=== PATIENT | female | born 1995 | race Two or more races ===

== ENCOUNTER 2021-07-28 15:15 | Outpatient (REF) | payer OTHER, SELFPAY | END 2021-07-28 15:16 | disposition home or self-care (01) | LOC: HO.LAB 15:15 | PROVIDERS: Visit Provider Internal Medicine | DX: Z20.822 Contact with and (suspected) exposure to COVID-19 (principal) | CPT/HCPCS: C9803; U0003; U0005 ==

== ENCOUNTER 2021-08-15 13:11 | Outpatient (REF) | payer OTHER, SELFPAY | END 2021-08-15 13:12 | disposition home or self-care (01) | LOC: HO.LAB 13:11 | PROVIDERS: Visit Provider Internal Medicine | DX: Z20.822 Contact with and (suspected) exposure to COVID-19 (principal) | CPT/HCPCS: C9803; U0003; U0005 ==

== ENCOUNTER 2021-10-23 10:22 | Outpatient (REF) | payer MEDICAID, SELFPAY ==
[2021-10-23 16:12] LABS: CT PCR DETECTED (Not Detect.); NG PCR NOT DETECTED (Not Detect.)
[2021-10-28 21:47] LABS: HPV mRNA E6/E7 rflx Not Detected (Not Detected)
== END 2021-10-23 10:23 | disposition home or self-care (01) ==
LOC: HO.LAB 10:22
PROVIDERS: Advanced Practice Midwife; Visit Provider Advanced Practice Midwife
DX: Z01.419 Encounter for gynecological examination (general) (routine) without abnormal findings (principal); Z11.3 Encounter for screening for infections with a predominantly sexual mode of transmission; Z11.51 Encounter for screening for human papillomavirus (HPV)
CPT/HCPCS: 87491; 87591; 87624; 88142

== ENCOUNTER → 2021-10-29 08:37 | Outpatient (BNVA) | payer MEDICAID, SELFPAY | PROVIDERS: Visit Provider Advanced Practice Midwife | DX: Z30.42 Encounter for surveillance of injectable contraceptive (principal) | CPT/HCPCS: 96372; 99211 ==

== ENCOUNTER 2022-04-07 12:09 | Outpatient (REF) | payer MEDICAID, SELFPAY ==
[2022-04-07 16:52] LABS: CT PCR NOT DETECTED (Not Detect.); NG PCR NOT DETECTED (Not Detect.)
[2022-04-08 11:04] LABS: BV Int Neg Control Negative (Negative); BV Int Pos Control Positive (Positive)
== END 2022-04-07 12:10 | disposition home or self-care (01) ==
LOC: HO.LAB 12:09
PROVIDERS: Visit Provider Advanced Practice Midwife
DX: Z01.419 Encounter for gynecological examination (general) (routine) without abnormal findings (principal); N93.9 Abnormal uterine and vaginal bleeding, unspecified; Z20.2 Contact with and (suspected) exposure to infections with a predominantly sexual mode of transmission
CPT/HCPCS: 87480; 87491; 87510; 87591; 87660; 99212

== ENCOUNTER 2022-06-19 13:57 | Outpatient (REF) | payer MEDICAID, SELFPAY ==
--- NOTE | ~2022-06-19 | US_ITS ---
EXAMINATION: US PELVIS CLINICAL INFORMATION: Abnormal uterine and vaginal bleeding COMPARISON: None TECHNIQUE: Ultrasound of the pelvis is performed using both transabdominal and transvaginal transducers along with Doppler. Transvaginal imaging is performed due to inadequate visualization transabdominally. FINDINGS: Uterus: The uterus is anteverted and anteflexed and measures 7.1 cm in length, 4.0 mL in AP and 5.1 cm in transverse dimension. The double wall endometrial thickness is 0.6 x 0.7 cm. The uterus is smooth in contour and has normal myometrial echogenicity. No visible fibroid. Adnexa: Both ovaries are visualized. There is normal color flow to the adnexa. There is no ovarian torsion. There is no pelvic ascites or fluid collection. Right ovary measures 3.6 x 3.1 x 4.3 cm and volume 24.1 mL. There is anechoic cyst measuring 3.3 x 2.6 x 3.1 cm and multiple small daughter cyst Left ovary measures 2.4 x 2.0 x 2.0 cm and volume 5.0 mL. There is no free fluid in the cul-de-sac. US/US pelvic and transvaginal IMPRESSION: Unremarkable uterus. Right ovarian cyst with multiple daughter cysts
== END 2022-06-19 13:58 | disposition home or self-care (01) ==
LOC: HO.US 13:57
PROVIDERS: Visit Provider Advanced Practice Midwife
DX: N93.9 Abnormal uterine and vaginal bleeding, unspecified (principal)
CPT/HCPCS: 76830; 76856

== ENCOUNTER 2022-10-13 18:16 | Day surgery (SDC) | payer MEDICAID, SELFPAY ==
--- NOTE | ~2022-10-13 | US_ITS ---
EXAMINATION: US OBSTETRICAL ULTRASOUND CLINICAL INFORMATION: Abdominal pain with positive test COMPARISON: None. LMP: 09/02/2022. Gestational age by maternal dates is 5 weeks 6 days. Estimated date of delivery by maternal dates is 06/09/2023. TECHNIQUE: Both transabdominal and endovaginal scanning was performed. FINDINGS: No gestational sac is seen within the uterus. Of note, in the right adnexa, there is a 1.9 x 1.6 x 2.0 cm adnexal mass that contains a fluid center, a yolk sac and a pole with a heart rate of 106 bpm consistent with an ectopic . Based upon the crown-rump length of 0.25 cm, gestational age would be 5 weeks 6 days with an JESSICA of 06/09/2023. MATERNAL ADNEXA: Aside from the above-mentioned ectopic , the right ovary measures 3.2 x 2.1 x 2.6 cm and appears unremarkable and the left ovary measures 2.8 x 1.6 x 1.6 cm and appears unremarkable. There is a small amount of free pelvic fluid. US/US OB pelvic and transvaginal IMPRESSION: There is a live ectopic seen in the right adnexa with heart rate of 106 bpm and a gestational age of 5 weeks 6 days. This critical result was delivered directly to Bianca Bolton NP immediately after the exam and it was ascertained that the content and urgency of the report was understood at the time of direct communication.
--- NOTE | 2022-10-13 18:30 | ED_ITS ---
HPI - Female Genitourinary General Chief complaint: Abdominal Pain <Bianca Bolton CNP - Last Filed: 10/13/22 20:40> Stated complaint: Sharp pain in cervix <Bianca Bolton CNP - Last Filed: 10/13/22 20:40> Time Seen by Provider: 10/13/22 20:40 <Bianca Bolton CNP - Last Filed: 10/13/22 20:40> Source: patient <Huber Castillo MD - Last Filed: 10/13/22 21:33> Mode of arrival: ambulatory <Huber Castillo MD - Last Filed: 10/13/22 21:33> Limitations: no limitations <Huber Castillo MD - Last Filed: 10/13/22 21:33> History of Present Illness HPI Narrative: 27-year-old female 2 therapeutic abortions LMP 09/02/2022, 5 weeks 6 days by dates, patient was unaware that she was at the time of presentation. She states that she was on Depo-Provera and her periods were irregular. The patient presented to the emergency department for evaluation of abdominal pain. She states the pain came on suddenly last night. She points to her suprapubic area when asked to localize the pain. She states the pain is been a sharp, constant pain which is 8/10 at its worst. Patient states the pain did radiate to her back. She denied nausea, vomiting, fever. She states she did have some chills. She denied frequency, urgency, dysuria. She denied vaginal discharge. The patient was seen by the provider in triage. Urine test was positive, quantitative beta-hCG was 9000. Ultrasound revealed a Right ectopic measuring 5 weeks and 6 days. Patient was then brought to the emergency department and evaluated by me. On my examination the patient has moderate suprapubic tenderness and moderate to severe left and right adnexal tenderness. Pelvic exam was deferred. Patient states that her last meal was breakfast at 10:00. <Huber Castillo MD - Last Filed: 10/13/22 21:33> Related Data Home medications: Home Medications Medication Instructions Recorded Confirmed No Known Home Meds 10/13/22 10/13/22 <Bianca Bolton CNP - Last Filed: 10/13/22 20:40> Allergies/Adverse reactions: Allergies Allergy/AdvReac Type Severity Reaction Status Date / Time No Known Allergies Allergy Verified 04/07/22 11:57 <Bianca Bolton CNP - Last Filed: 10/13/22 20:40> Review of Systems Review of Systems: Yes all other systems are reviewed and are negative <Huber Castillo MD - Last Filed: 10/13/22 21:33> [facility] Past Medical History [facility] Narrative: Past medical history: None. Past surgical history: Cervical polyp. Social history: She denies tobacco, alcohol and drug use. <Huber Castillo MD - Last Filed: 10/13/22 21:33> Medical History: Medical History Abnormal uterine bleeding (AUB) <Bianca Bolton CNP - Last Filed: 10/13/22 20:40> Surgical History: Surgical History H/O eye surgery Status post cervical polyp removal <Bianca Bolton CNP - Last Filed: 10/13/22 20:40> Social History Social History: Social History Alcohol intake: never Patient Tobacco Use Status: Current someday Tobacco user Tobacco use type: Cigarette Cigarettes Per Day: 2 Smoked in Last 30 Days: No Use of substances other than those prescribed or required for medical reasons: No Advance Directives: No Advance Directives Information Provided: No Current occupational status: employed Current occupation: [employer] <Bianca Bolton CNP - Last Filed: 10/13/22 20:40> Physical Exam Vital Signs: Vital Signs: Last Vital Signs Temp 98.5 F 10/13/22 20:58 Pulse 73 10/13/22 20:58 Resp 18 10/13/22 20:58 BP 98/63 10/13/22 20:58 Pulse Ox 98 10/13/22 20:58 O2 Del Method 10/13/22 20:58 BMI result Body Mass Index 21.2 <Bianca Bolton CNP - Last Filed: 10/13/22 20:40> Vital Signs: Last Vital Signs Temp 98.5 F 10/13/22 20:58 Pulse 73 10/13/22 20:58 Resp 18 10/13/22 20:58 BP 98/63 10/13/22 20:58 Pulse Ox 98 10/13/22 20:58 O2 Del Method 10/13/22 20:58 BMI result Body Mass Index 21.2 Vital signs were normal. <Huber Castillo MD - Last Filed: 10/13/22 21:33> General: Awake, alert, female patient, pleasant, cooperative, no distress. HEENT: Head normal cephalic atraumatic, pupils equal round reactive light, sclera contact however normal, mouth revealed moist membranes. Neck: Supple no adenopathy. Lungs: Clear to auscultation Abdomen: Nondistended, normoactive bowel sounds, moderate suprapubic/pelvic tenderness, moderate bilateral adnexal tenderness right greater than left. Back: No CVA tenderness Extremities: Normal Neurologic exam: Nonfocal <Huber Castillo MD - Last Filed: 10/13/22 21:33> Course Course Course Narrative: This is an RME: Additional HPI, ROS, PE not included below will be deferred to primary provider. Patient is a 27 year old female, presenting to the ED for evaluation of ABD pain. States pain to diffuse lower ABD/ diffuse lower back pain. States It's in my ovaries , feels like menstrual cramping but this is worse. Denies nausea, vomiting, vaginal bleeding, vaginal discharge, dysuria, urinary frequency, hematuria. Pain 7/10 States LMP 09/02/22, irregular menses since stopped depo-provera March 2022. Plan: labs, urinalysis, hcg 20:05 positive , patient made aware, will obtain pelvic US 20:30 advised by game technician, patient with positive ectopic , positive cardiac activity. Spoke with tank charger, patient to be brought back to room 13, advised ED attending Dr. Castillo of patient case <Bianca Bolton CNP - Last Filed: 10/13/22 20:40> Medical Decision Making Medical Decision Making MDM Narrative: 27-year-old female , 2 therapeutic abortions, 5 weeks 6 days based on LMP, who presented to emergency department for evaluation lower abdominal pain which began last night. Patient's exam did reveal suprapubic and bilateral adnexal tenderness. Patient's workup was started by the provider in triage. 2110: My independent interpretation of the patient's laboratory data is as follows: WBC normal 7200, anemia with an H&H of 11.8 and 34.4-no baseline value s. Chloride elevated 109, LFTs normal, quantitative beta-hCG elevated 9003. COVID-19 pending. Urinalysis leukocyte esterase 1+, microscopic revealed 0-2 RBCs, 11-20 WBCs, 3-5 epithelial cells, 4+ bacteria-patient is asymptomatic with no dysuria, this is most likely a non clean catch specimen. Radiology interpretation of the pelvic ultrasound is why right ectopic measuring 5 weeks 6 days. I did discuss this finding with the covering OBGYN surgeon, Dr. Trujillo and he is coming to the emergency department to evaluate the patient. A type and screen has been ordered. <Huber Castillo MD - Last Filed: 10/13/22 21:33> Differential Diagnosis Differential diagnosis includes but is not limited to appendicitis, ovarian cyst, ectopic , ovarian torsion <Huber Castillo MD - Last Filed: 10/13/22 21:33> Consult Healthcare Provider I discussed the patient's presentation with Dr. Trujillo, OBGYN on-call <Huber Castillo MD - Last Filed: 10/13/22 21:33> Lab Data [facility] Lab Attestation statement: I reviewed the patient's lab results. <Huber Castillo MD - Last Filed: 10/13/22 21:33> Please see [facility] for discussion <Huber Castillo MD - Last Filed: 10/13/22 21:33> Result Diagrams: 10/13/22 19:37 10/13/22 19:37 <Bianca Bolton CNP - Last Filed: 10/13/22 20:40> Labs: Lab Results 10/13/22 10/13/22 10/13/22 Range/Units 18:41 18:41 19:37 WBC 7.2 (4.8-10.8) X10*3/uL RBC 3.77 L (4.20-5.50) X10*6/uL Hgb 11.8 L (12.0-16.0) g/dl Hct 34.4 L (37.0-47.0) % MCV 91.2 (80.0-98.0) fL MCH 31.3 (27.0-33.0) pg MCHC 34.3 (31.0-35.0) g/dl RDW 12.7 (11.0-16.0) % Plt Count 165 (160-400) X10*3/uL MPV 9.8 (9.4-12.3) fL Immature Gran % (Auto) 0.1 (0.0-0.4) % Neut % (Auto) 59.9 (45-73) % Lymph % (Auto) 30.8 (20-40) % [place] % (Auto) 7.5 (2-11) % Eos % (Auto) 1.3 (0-4) % Baso % (Auto) 0.4 (0-2) % Lymph # (Auto) 2.2 (1.2-4.9) X10*3/uL [place] # (Auto) 0.5 (0.1-1.2) X10*3/uL Eos # (Auto) 0.1 (0.0-0.4) X10*3/uL Baso # (Auto) 0.0 (0.0-0.2) X10*3/uL Abs Immat Gran (auto) 0.01 (0.00-0.03) X10*3/uL Absolute Neuts (auto) 4.3 (2.0-8.3) x10*3/uL Absolute Nucleated RBC 0.000 (0.0-0.012) X10*3/uL Nucleated RBC % (auto) 0.0 (0.0-0.2) /100WBC Sodium (135-145) mmol/L Potassium (3.3-5.1) mmol/L Chloride (96-108) mmol/L Carbon Dioxide (22-29) mmol/L Anion Gap (12-20) BUN (9-16) mg/dL Creatinine (0.5-1.4) mg/dL Estim Creat Clear Calc Estimated GFR Random Glucose (60-115) mg/dL Calcium (8.4-10.2) mg/dL Total Bilirubin (0.0-1.0) mg/dL AST (5-31) U/L ALT (0-31) U/L Alkaline Phosphatase (39-117) U/L Total Protein (6.5-8.0) g/dL Albumin (3.5-5.0) g/dL Lipase (8-78) U/L Beta HCG, Quant mIU/mL Urine Color Yellow Urine Appearance Cloudy Urine pH 7.0 (5.0-9.0) Ur Specific [place] >= 1.030 H (1.005-1.025) Urine Protein Trace (Neg-Trace) mg/dL Urine Glucose (UA) Negative (Negative) mg/dL Urine Ketones Trace (Negative) mg/dL Urine Blood Negative (Negative) Urine Nitrite Negative (Negative) Ur Leukocyte Esterase Small (1+) H (Negative) Urine RBC 0-2 (0-2) /HPF Urine WBC 11-20 H (0-5) /HPF Ur Squamous Epith Cells 3-5 (0-2) /HPF Urine Bacteria 4+ (None Seen) Hyaline Casts 0-2 (0-2) /LPF Urine Test POSITIVE H (NEGATIVE) COVID-19 (UMAIR) (Negative) COVID-19 Clin Com 10/13/22 10/13/22 Range/Units 19:37 20:48 WBC (4.8-10.8) X10*3/uL RBC (4.20-5.50) X10*6/uL Hgb (12.0-16.0) g/dl Hct (37.0-47.0) % MCV (80.0-98.0) fL MCH (27.0-33.0) pg MCHC (31.0-35.0) g/dl RDW (11.0-16.0) % Plt Count (160-400) X10*3/uL MPV (9.4-12.3) fL Immature Gran % (Auto) (0.0-0.4) % Neut % (Auto) (45-73) % Lymph % (Auto) (20-40) % [place] % (Auto) (2-11) % Eos % (Auto) (0-4) % Baso % (Auto) (0-2) % Lymph # (Auto) (1.2-4.9) X10*3/uL [place] # (Auto) (0.1-1.2) X10*3/uL Eos # (Auto) (0.0-0.4) X10*3/uL Baso # (Auto) (0.0-0.2) X10*3/uL Abs Immat Gran (auto) (0.00-0.03) X10*3/uL Absolute Neuts (auto) (2.0-8.3) x10*3/uL Absolute Nucleated RBC (0.0-0.012) X10*3/uL Nucleated RBC % (auto) (0.0-0.2) /100WBC Sodium 142 (135-145) mmol/L Potassium 4.0 (3.3-5.1) mmol/L Chloride 109 H (96-108) mmol/L Carbon Dioxide 26 (22-29) mmol/L Anion Gap 11 L (12-20) BUN 8 L (9-16) mg/dL Creatinine 0.80 (0.5-1.4) mg/dL Estim Creat Clear Calc 85.8 Estimated GFR > 60 Random Glucose 90 (60-115) mg/dL Calcium 9.1 (8.4-10.2) mg/dL Total Bilirubin 0.3 (0.0-1.0) mg/dL AST 11 (5-31) U/L ALT 9 (0-31) U/L Alkaline Phosphatase 60 (39-117) U/L Total Protein 6.1 L (6.5-8.0) g/dL Albumin 3.9 (3.5-5.0) g/dL Lipase 13 (8-78) U/L Beta HCG, Quant 9003 mIU/mL Urine Color Urine Appearance Urine pH (5.0-9.0) Ur Specific [place] (1.005-1.025) Urine Protein (Neg-Trace) mg/dL Urine Glucose (UA) (Negative) mg/dL Urine Ketones (Negative) mg/dL Urine Blood (Negative) Urine Nitrite (Negative) Ur Leukocyte Esterase (Negative) Urine RBC (0-2) /HPF Urine WBC (0-5) /HPF Ur Squamous Epith Cells (0-2) /HPF Urine Bacteria (None Seen) Hyaline Casts (0-2) /LPF Urine Test (NEGATIVE) COVID-19 (UMAIR) Negative (Negative) COVID-19 Clin Com See Note <Bianca Strange Che, CUSTOMER RESOLUTION SPECIALIST - Last Filed: 10/13/22 20:40> Lab Results 10/13/22 10/13/22 10/13/22 Range/Units 18:41 18:41 19:37 WBC 7.2 (4.8-10.8) X10*3/uL RBC 3.77 L (4.20-5.50) X10*6/uL Hgb 11.8 L (12.0-16.0) g/dl Hct 34.4 L (37.0-47.0) % MCV 91.2 (80.0-98.0) fL MCH 31.3 (27.0-33.0) pg MCHC 34.3 (31.0-35.0) g/dl RDW 12.7 (11.0-16.0) % Plt Count 165 (160-400) X10*3/uL MPV 9.8 (9.4-12.3) fL Immature Gran % (Auto) 0.1 (0.0-0.4) % Neut % (Auto) 59.9 (45-73) % Lymph % (Auto) 30.8 (20-40) % [place] % (Auto) 7.5 (2-11) % Eos % (Auto) 1.3 (0-4) % Baso % (Auto) 0.4 (0-2) % Lymph # (Auto) 2.2 (1.2-4.9) X10*3/uL [place] # (Auto) 0.5 (0.1-1.2) X10*3/uL Eos # (Auto) 0.1 (0.0-0.4) X10*3/uL Baso # (Auto) 0.0 (0.0-0.2) X10*3/uL Abs Immat Gran (auto) 0.01 (0.00-0.03) X10*3/uL Absolute Neuts (auto) 4.3 (2.0-8.3) x10*3/uL Absolute Nucleated RBC 0.000 (0.0-0.012) X10*3/uL Nucleated RBC % (auto) 0.0 (0.0-0.2) /100WBC Sodium (135-145) mmol/L Potassium (3.3-5.1) mmol/L Chloride (96-108) mmol/L Carbon Dioxide (22-29) mmol/L Anion Gap (12-20) BUN (9-16) mg/dL Creatinine (0.5-1.4) mg/dL Estim Creat Clear Calc Estimated GFR Random Glucose (60-115) mg/dL Calcium (8.4-10.2) mg/dL Total Bilirubin (0.0-1.0) mg/dL AST (5-31) U/L ALT (0-31) U/L Alkaline Phosphatase (39-117) U/L Total Protein (6.5-8.0) g/dL Albumin (3.5-5.0) g/dL Lipase (8-78) U/L Beta HCG, Quant mIU/mL Urine Color Yellow Urine Appearance Cloudy Urine pH 7.0 (5.0-9.0) Ur Specific [place] >= 1.030 H (1.005-1.025) Urine Protein Trace (Neg-Trace) mg/dL Urine Glucose (UA) Negative (Negative) mg/dL Urine Ketones Trace (Negative) mg/dL Urine Blood Negative (Negative) Urine Nitrite Negative (Negative) Ur Leukocyte Esterase Small (1+) H (Negative) Urine RBC 0-2 (0-2) /HPF Urine WBC 11-20 H (0-5) /HPF Ur Squamous Epith Cells 3-5 (0-2) /HPF Urine Bacteria 4+ (None Seen) Hyaline Casts 0-2 (0-2) /LPF Urine Test POSITIVE H (NEGATIVE) COVID-19 (UMAIR) (Negative) COVID-19 Clin Com 10/13/22 10/13/22 Range/Units 19:37 20:48 WBC (4.8-10.8) X10*3/uL RBC (4.20-5.50) X10*6/uL Hgb (12.0-16.0) g/dl Hct (37.0-47.0) % MCV (80.0-98.0) fL MCH (27.0-33.0) pg MCHC (31.0-35.0) g/dl RDW (11.0-16.0) % Plt Count (160-400) X10*3/uL MPV (9.4-12.3) fL Immature Gran % (Auto) (0.0-0.4) % Neut % (Auto) (45-73) % Lymph % (Auto) (20-40) % [place] % (Auto) (2-11) % Eos % (Auto) (0-4) % Baso % (Auto) (0-2) % Lymph # (Auto) (1.2-4.9) X10*3/uL [place] # (Auto) (0.1-1.2) X10*3/uL Eos # (Auto) (0.0-0.4) X10*3/uL Baso # (Auto) (0.0-0.2) X10*3/uL Abs Immat Gran (auto) (0.00-0.03) X10*3/uL Absolute Neuts (auto) (2.0-8.3) x10*3/uL Absolute Nucleated RBC (0.0-0.012) X10*3/uL Nucleated RBC % (auto) (0.0-0.2) /100WBC Sodium 142 (135-145) mmol/L Potassium 4.0 (3.3-5.1) mmol/L Chloride 109 H (96-108) mmol/L Carbon Dioxide 26 (22-29) mmol/L Anion Gap 11 L (12-20) BUN 8 L (9-16) mg/dL Creatinine 0.80 (0.5-1.4) mg/dL Estim Creat Clear Calc 85.8 Estimated GFR > 60 Random Glucose 90 (60-115) mg/dL Calcium 9.1 (8.4-10.2) mg/dL Total Bilirubin 0.3 (0.0-1.0) mg/dL AST 11 (5-31) U/L ALT 9 (0-31) U/L Alkaline Phosphatase 60 (39-117) U/L Total Protein 6.1 L (6.5-8.0) g/dL Albumin 3.9 (3.5-5.0) g/dL Lipase 13 (8-78) U/L Beta HCG, Quant 9003 mIU/mL Urine Color Urine Appearance Urine pH (5.0-9.0) Ur Specific [place] (1.005-1.025) Urine Protein (Neg-Trace) mg/dL Urine Glucose (UA) (Negative) mg/dL Urine Ketones (Negative) mg/dL Urine Blood (Negative) Urine Nitrite (Negative) Ur Leukocyte Esterase (Negative) Urine RBC (0-2) /HPF Urine WBC (0-5) /HPF Ur Squamous Epith Cells (0-2) /HPF Urine Bacteria (None Seen) Hyaline Casts (0-2) /LPF Urine Test (NEGATIVE) COVID-19 (UMAIR) Negative (Negative) COVID-19 Clin Com See Note <Huber Castillo MD - Last Filed: 10/13/22 21:33> Radiology Impression Discussion of test interpretation with radiology: I have reviewed the radiologist's reading. <Huber Castillo MD - Last Filed: 10/13/22 21:33> Radiologist Impression: LMP: 09/02/2022. Gestational age by maternal dates is 5 weeks 6 days. Estimated date of delivery by maternal dates is 06/09/2023. TECHNIQUE: Both transabdominal and endovaginal scanning was performed. ? FINDINGS: No gestational sac is seen within the uterus. Of note, in the right adnexa, there is a 1.9 x 1.6 x 2.0 cm adnexal mass that contains a fluid center, a yolk sac and a pole with a heart rate of 106 bpm consistent with an ectopic . Based upon the crown-rump length of 0.25 cm, gestational age would be 5 weeks 6 days with an JESSICA of 06/09/2023. ?? MATERNAL ADNEXA: ? ? Aside from the above-mentioned ectopic , the right ovary measures 3.2 x 2.1 x 2.6 cm and appears unremarkable and the left ovary measures 2.8 x 1.6 x 1.6 cm and appears unremarkable. There is a small amount of free pelvic fluid. US/US OB pelvic and transvaginal IMPRESSION: There is a live ectopic seen in the right adnexa with heart rate of 106 bpm and a gestational age of 5 weeks 6 days. This critical result was delivered directly to Bianca Barcome PRODUCTION GEAR CUTTER immediately after the exam and it was ascertained that the content and urgency of the report was understood at the time of direct communication. ? Dictated By: Bonilla Wilson MD Signed By:<Electronically signed by Bonilla Wilson MD in OV>[id number]/13/[id number] <Huber Castillo MD - Last Filed: 10/13/22 21:33> Discharge Plan Discharge Prescriptions: No Action No Known Home Meds <Bianca Bolton CNP - Last Filed: 10/13/22 20:40>
[2022-10-13 18:32] VITALS: BP 128/78; PULSE 103; RESP 20; TEMP 36.6; O2SAT 98; BMI 21.2
[2022-10-13 18:56] LABS: Appearance Urine Cloudy; Color Urine Yellow; Glucose Urine UA Negative (Negative); Leukocyte Esterase Urine Small (1+) (Negative); Nitrite Urine Negative (Negative); Specific Gravity - Urine >= 1.030 (1.005-1.025); UMIC TRIGGER UACC YES; Urine Blood Negative (Negative); Urine Ketones Trace mg/dL (Negative); Urine Protein Trace mg/dL (Neg-Trace)
[2022-10-13 18:58] LABS: Bacteria Urine 4+ (None Seen); Hyaline Casts Urine 0-2 /LPF (0-2); RBC Urine 0-2 /HPF (0-2); UACC Culture Trigger YES; UPreg QC Valid YES; Urine Pregnancy POSITIVE (NEGATIVE)
[2022-10-13 19:41] LABS: MANUAL DIFF FLAG NO
[2022-10-13 19:43] LABS: Basophils Percent Auto 0.4 % (0-2); Eosinophils Absolute Auto 0.1 X10*3/uL (0.0-0.4); Eosinophils Percent Auto 1.3 % (0-4); Hematocrit 34.4 % (37.0-47.0); Hemoglobin 11.8 g/dl (12.0-16.0); Imm Gran Abs Auto 0.01 X10*3/uL (0.00-0.03); Imm Gran Pct Auto 0.1 % (0.0-0.4); Lymphocytes Absolute Auto 2.2 X10*3/uL (1.2-4.9); Lymphocytes Percent Auto 30.8 % (20-40); Mean Corpuscular HGB Conc 34.3 g/dl (31.0-35.0); Mean Corpuscular Hemoglobin 31.3 pg (27.0-33.0); Mean Corpuscular Volume 91.2 fL (80.0-98.0); Mean Platelet Volume 9.8 fL (9.4-12.3); Monocytes Absolute Auto 0.5 X10*3/uL (0.1-1.2); Monocytes Percent Auto 7.5 % (2-11); Neutrophils Absolute Auto 4.3 x10*3/uL (2.0-8.3); Neutrophils Percent Auto 59.9 % (45-73); Platelet Count 165 X10*3/uL (160-400); Red Blood Count 3.77 X10*6/uL (4.20-5.50); Red Cell Distribution Width 12.7 % (11.0-16.0); White Blood Count 7.2 X10*3/uL (4.8-10.8)
[2022-10-13 19:57] LABS: Alanine Aminotransferase 9 U/L (0-31); Albumin Level 3.9 g/dL (3.5-5.0); Alkaline Phosphatase 60 U/L (39-117); Anion Gap 11 (12-20); Aspartate Amino Transferase 11 U/L (5-31); Bilirubin Total 0.3 mg/dL (0.0-1.0); Blood Urea Nitrogen 8 mg/dL (9-16); Calcium 9.1 mg/dL (8.4-10.2); Carbon Dioxide 26 mmol/L (22-29); Chloride 109 mmol/L (96-108); Creatinine Clr Calc Pharmacy 85.8; Estimated Glomerular Filt Rate > 60; Glucose Random 90 mg/dL (60-115); Lipase 13 U/L (8-78); Sodium 142 mmol/L (135-145); Total Protein 6.1 g/dL (6.5-8.0)
--- NOTE | 2022-10-13 20:23 | PC.NURSE ---
Pt called in the WR @ this time with no response.
[2022-10-13 20:26] LABS: HCG Quantitative 9003 mIU/mL
[2022-10-13 20:58] VITALS: BP 98/63; PULSE 73; RESP 18; TEMP 36.9; O2SAT 98
[2022-10-13 21:25] LABS: COVID-19 Test Negative (Negative); IDNOW Serial# 6674DD1D
--- NOTE | 2022-10-13 21:34 | PM.GYNCN ---
MEDICAID BILLING SPECIALIST - CN: HPI Data of Consult Consult date: 10/13/22 Primary Care Provider: [facility] Consult Narrative Narrative: I was consulted on Leonila Gamboa who is a 27 year old female LMP 09/02/2022, 5 weeks 6 days by dates, presented to the emergency room complaining of right abdominal pain, the pain started yesterday evening and was sharp and resolved in the morning back this afternoon,?It is sharp in nature, constant 8/10 at its worst and radiates to her back no associated nausea, vomiting or fever, no urinary symptoms or vaginal discharge.? In the emergency room the following workup was done: H&H 11.8/34.4, hCG 9003, ultrasound was done and showed a right 2 cm live ectopic with a positive heart rate. Rh positive cc:: CC: OB [facility] Past Medical History Medical History Abnormal uterine bleeding (AUB) Surgical History Surgical History H/O eye surgery Status post cervical polyp removal Social History Social History Alcohol intake: never Patient Tobacco Use Status: Current someday Tobacco user Tobacco use type: Cigarette Cigarettes Per Day: 2 Smoked in Last 30 Days: No Use of substances other than those prescribed or required for medical reasons: No Advance Directives: No Advance Directives Information Provided: No Current occupational status: employed Current occupation: [employer] Allergies Allergy/AdvReac Type Severity Reaction Status Date / Time No Known Allergies Allergy Verified 04/07/22 11:57 Home Medications Medication Instructions Recorded Confirmed Last Taken Type No Known Home Meds 10/13/22 10/13/22 Unknown History MEDICAID BILLING SPECIALIST Physical Exam Vitals Vital signs: Temp Pulse Resp BP Pulse Ox O2 Del Method 98.5 F 73 18 98/63 98 10/13/22 20:58 10/13/22 20:58 10/13/22 20:58 10/13/22 20:58 10/13/22 20:58 10/13/22 20:58 BMI result Body Mass Index 21.2 Abdomen Auscultation/Inspection/Palpation: Soft and Tenderness (Right lower quadrant tenderness, no rebound or guarding) Female Genitalia (Pelvic) Exam: Deferred MEDICAID BILLING SPECIALIST - Results Labs 10/13/22 19:37 10/13/22 19:37 Labs: Short CBC 10/13/22 Range/Units 19:37 WBC 7.2 (4.8-10.8) X10*3/uL Hgb 11.8 L (12.0-16.0) g/dl Hct 34.4 L (37.0-47.0) % Plt Count 165 (160-400) X10*3/uL BMP 10/13/22 19:37 Sodium 142 Potassium 4.0 Chloride 109 H Carbon Dioxide 26 BUN 8 L Creatinine 0.80 Calcium 9.1 Liver Function 10/13/22 Range/Units 19:37 Total Bilirubin 0.3 (0.0-1.0) mg/dL AST 11 (5-31) U/L ALT 9 (0-31) U/L Alkaline Phosphatase 60 (39-117) U/L Albumin 3.9 (3.5-5.0) g/dL Urine 10/13/22 10/13/22 Range/Units 18:41 18:41 Urine Color Yellow Urine Appearance Cloudy Urine pH 7.0 (5.0-9.0) Ur Specific [place] >= 1.030 H (1.005-1.025) Urine Protein Trace (Neg-Trace) mg/dL Urine Glucose (UA) Negative (Negative) mg/dL Urine Test POSITIVE H (NEGATIVE) Assessment and Plan (1) Ectopic of right ovary: Status: Acute Plan Discussed with the patient her clinical scenario, ectopic was + heart rate and high HCG level at 9003, two relative contraindications for methotrexate. Discussed with the patient options of treatment including methotrexate , multidose regimen to improve the success rate , with two relative contraindications to methotrexate treatment, versus laparoscopic salpingostomy possible salpingectomy. Discussed the following with the patient, the advantage of methotrexate treatment would be to avoid surgical complications and its possible consequences, however the risks of methotrexate treatment were discussed with the patient includeingbut not limited to: a higher failure rate because of the 2 factors that are relative contraindications, possible tubal rupture with its possible consequences. In addition, discussed with the patient surgical management, laparoscopic salpingostomy possible salpingectomy possible laparotomy, the risks of which were discussed with the patient including but not limited to : bleeding, infection, possible injury to bladder, bowel, ureter, bladder, possible injury to vessels and need for blood transfusion with all its risks including HIV, hepatitis-B and C and other blood borne pathogens, possible negative impact on future fertility, possible incision infection or hernia, placenta thrombosis, possible scar tissue development and chronic pelvic pain, incomplete removal of ectopic , possible laparotomy, hysterectomy or . After further discussion the patient decided to proceed with surgical management normal laparoscopic salpingostomy/possibly salpingectomy possible laparotomy. All questions answered, the patient verbalized understanding agreed with the plan and signed the consent. Type and screen sent. Time Spent With Patient Time: Total time managing care of this patient today ____ minutes.
--- NOTE | 2022-10-13 22:27 | HO.ANESPROP2 ---
HPI - Anesthesia Eval Consult details Narrative: Ectopic PMFSH Active Problems Active Problems: All Active Problems (Updated 10/13/22 @ 21:32 by Huber Castillo MD) Ectopic of right ovary (Acute) Abnormal uterine bleeding (AUB) (Acute) Chlamydia contact, treated (Acute) Spotting (Acute) Encounter for management and injection of depo-Provera (Acute) Encounter for annual routine gynecological examination (Acute) Past Medical History Medical History Abnormal uterine bleeding (AUB) Family History Family history of problems with anesthesia: No Surgical History Surgical History H/O eye surgery Status post cervical polyp removal History of Problems with Anesthesia: No Social History Social History Alcohol intake: never Patient Tobacco Use Status: Current someday Tobacco user Tobacco use type: Cigarette Cigarettes Per Day: 2 Smoked in Last 30 Days: No Use of substances other than those prescribed or required for medical reasons: No Advance Directives: No Advance Directives Information Provided: No Current occupational status: employed Current occupation: [employer] Allergies Allergy/AdvReac Type Severity Reaction Status Date / Time No Known Allergies Allergy Verified 04/07/22 11:57 Home Medications Medication Instructions Recorded Confirmed Last Taken Type No Known Home Meds 10/13/22 10/13/22 Unknown History Exam Exam Date and Time: October 13, [id number] Height,Weight and Vital Signs: Height 5 ft 3 in Weight 54.431 kg Last Vital Signs Temp 98.5 F 10/13/22 20:58 Pulse 73 10/13/22 20:58 Resp 18 10/13/22 20:58 BP 98/63 10/13/22 20:58 Pulse Ox 98 10/13/22 20:58 O2 Del Method 10/13/22 20:58 Pertinent Lab Results Pertinent Lab Results: Laboratory Tests 10/13/22 10/13/22 10/13/22 18:41 18:41 19:37 WBC 7.2 RBC 3.77 L Hgb 11.8 L Hct 34.4 L MCV 91.2 MCH 31.3 MCHC 34.3 RDW 12.7 Plt Count 165 MPV 9.8 Immature Gran % (Auto) 0.1 Neut % (Auto) 59.9 Lymph % (Auto) 30.8 [place] % (Auto) 7.5 Eos % (Auto) 1.3 Baso % (Auto) 0.4 Lymph # (Auto) 2.2 [place] # (Auto) 0.5 Eos # (Auto) 0.1 Baso # (Auto) 0.0 Abs Immat Gran (auto) 0.01 Absolute Neuts (auto) 4.3 Absolute Nucleated RBC 0.000 Nucleated RBC % (auto) 0.0 Sodium Potassium Chloride Carbon Dioxide Anion Gap BUN Creatinine Estim Creat Clear Calc Estimated GFR Random Glucose Calcium Total Bilirubin AST ALT Alkaline Phosphatase Total Protein Albumin Lipase Beta HCG, Quant Urine Color Yellow Urine Appearance Cloudy Urine pH 7.0 Ur Specific Orient >= 1.030 H Urine Protein Trace Urine Glucose (UA) Negative Urine Ketones Trace Urine Blood Negative Urine Nitrite Negative Ur Leukocyte Esterase Small (1+) H Urine RBC 0-2 Urine WBC 11-20 H Ur Squamous Epith Cells 3-5 Urine Bacteria 4+ Hyaline Casts 0-2 Urine Test POSITIVE H COVID-19 (UMAIR) COVID-19 [employer] Com Blood Type Antibody Screen 10/13/22 10/13/22 10/13/22 19:37 20:48 21:02 WBC RBC Hgb Hct MCV MCH MCHC RDW Plt Count MPV Immature Gran % (Auto) Neut % (Auto) Lymph % (Auto) [place] % (Auto) Eos % (Auto) Baso % (Auto) Lymph # (Auto) [place] # (Auto) Eos # (Auto) Baso # (Auto) Abs Immat Gran (auto) Absolute Neuts (auto) Absolute Nucleated RBC Nucleated RBC % (auto) Sodium 142 Potassium 4.0 Chloride 109 H Carbon Dioxide 26 Anion Gap 11 L BUN 8 L Creatinine 0.80 Estim Creat Clear Calc 85.8 Estimated GFR > 60 Random Glucose 90 Calcium 9.1 Total Bilirubin 0.3 AST 11 ALT 9 Alkaline Phosphatase 60 Total Protein 6.1 L Albumin 3.9 Lipase 13 Beta HCG, Quant 9003 Urine Color Urine Appearance Urine pH Ur Specific Orient Urine Protein Urine Glucose (UA) Urine Ketones Urine Blood Urine Nitrite Ur Leukocyte Esterase Urine RBC Urine WBC Ur Squamous Epith Cells Urine Bacteria Hyaline Casts Urine Test COVID-19 (UMAIR) Negative COVID-19 [employer] Com See Note Blood Type B Positive Antibody Screen NEGATIVE Airway Mallampati Class: II TM Dist: >3cm Neck ROM: Full Loose/Missing/Broken Teeth: No Heart: RRR Lungs: CTA Assessment and Plan Assessment Anesthesia Assessment: Anesthesia Plan Discussed and Chart Reviewed Final Anesthetic Review Family History of Problems with Anesthesia: No History of Problems with Anesthesia: No NPO: Yes ASA Class: I and Emergency Final Preanesthetic Review: No Changes in Pt Med Stat, Meds/Allgs Chart Reviewed, Consent Obtained/Reviewed and Anes Risks/Benef Reviewed Patient Risk: Low Procedure Risk: Intermediate Anesthetic Plan Anesthetic Plan: GA Disposition: Standard PACU
[2022-10-14] VITALS (7 sets, daily range): BP systolic 112–127; BP diastolic 62–78; PULSE 82–99; RESP 16–20; TEMP 36.3–37; O2SAT 99–100
--- NOTE | 2022-10-14 00:13 | P.BOP_ITS ---
Brief Operative Note Date of Service: 10/14/22 Pre-op diagnosis: Right tubal Ectopic with positive heart rate and 9003 hCG Post-op diagnosis: same ( 100 cc of hemoperitoneum, damage distended distal fallopian tube) Procedure: Laparoscopic right partial salpingectomy Surgeon: Nikunj Trujillo MD Anesthesia: GETA Was an Official Greeter used for this Procedure?: No Estimated blood loss (mL): 0 Pathology: other (Right partial fallopian tube with ectopic prepped) Condition: stable Disposition: PACU
--- NOTE | 2022-10-14 00:15 | W.PM.OPN ---
Operative Note Operative Note Date of Service: 10/14/22 Narrative: PREOPERATIVE DIAGNOSIS:?R tubal ectopic POSTOPERATIVE DIAGNOSIS:?Right ecotpic filling up most of the distal fallopian tubewith distension and bluish discoloration, 1000 cc of hemoperitoneum Procedure: Right partial salpingectomy QBL: Minimal Anesthesia: GETA SURGEON:? Nikunj Trujillo MD?? Computer Graphic Artist:None Complications: None Pathology: Right partial Fallopian tubes in 2 specimens with ectopic ? DESCRIPTION OF PROCEDURE:?The patient was taken to the OR where general anesthesia was easily obtained. The patient was then prepped and draped in a sterile fashion and placed in dorsal lithotomy position. A speculum was introduced into the patient?s vagina for cervical visualization. The single tooth tenaculum used to grab the anterior lip of the cervix and Humi uterine manipulator was introduced inside the patient uterine cavity, the single-tooth tenaculum was then removed and hemostasis was assured?using pressure. a Brito catheter?was inserted and clear urine started draining. Gloves were changed to clean ones. Attention was then drawn to the abdomen where a 10 mm longitudinal incision was done intra umbilical and carried down all the way to the fascia, which was tented?up using 2 Nevin clamps and was nicked in the midline and then extended on both end of the incision?, them using 2 pick?ups the peritoneum?was entered with Metzenbaum scissors and under direct visualization, a 10 mm Jasso trocar was introduced into the patient?s abdomen. Once intraperitoneal placement was confirmed with direct visualization, pneumoperitoneum was started & was easily obtained.Then, two fingerbreadths above the pubic symphysis and towards the?right lower quadrant, under direct visualization, a 5 mm trocar was then introduced into the patient?s abdomen. and a 3rd one on the left?lower quadrant was placed?in a similar manner. The patient was placed in Trendelenburg position, Inspection revealed right tubal filling up most of the distal right tube , it looked damaged from the pressure of the distention and 100 cc of hemoperitoneum, normal bilateral ovaries and normal left fallopian tube. Attention was then drawn to the Right fallopian tube. Since most of the distal right tube was filled up with the ectopic and looked damage from the distention, decision was made to proceed with partial salpingectomy instead of salpingostomy. The IP ligament was identified and fallopian tube was then grasped by the fimbria and incised from the mesosalpinx using ligasure device, using cautery for hemostasis and cutting afterwards a bite at a time all the way to the area medial to the edge of the ectopic of the right fallopian tube , the portion of the distal fallopian tube was taken out in 2 steps with 2 separate specimen. Good hemostasis was noted from the right fallopian tube sites and the operative site. Specimen were then removed from the patient?s abdomen using endoloop from the 10 mm trocar through the umbilicus. Copious irrigation was done. Once good hemostasis was noted from the patient?s abdomen, pneumoperitoneum was deflated and all trocars were removed. Infraumbilical fascia was closed with 0 Vicryl and interrupted suture. The skin was closed with 4-0 Vicryl. The Right and left?lower quadrant ports were closed with 0 Vicryl. Bupivicaine 0.25 10 cc were injected subcuticularly in the 3 incisions. Then speculum was put back in the vagina inspection revealed?hemostasis at the site of the tenaculum, the?sponge stick was removed?from the patient's vagina and Brito was draining clear urine was taken out too. Sponge, lap and needle counts were correct x2. The patient was taken to the recovery room in stable condition.
[2022-10-14] MEDS: oxyCODONE HCl Immed Release 5 MG TABLET PO (01:02)
[2022-10-14] MEDS: Acetaminophen 1,000 MG/100 ML PIGGYBACK 400 MG IV (01:02)
--- NOTE | 2022-10-14 01:51 | PC.NURSE ---
Dr. Trujillo sent script to pharmacy electronically. Patient aware. Patient given 5 mg oxycodone and IV tylenol per Dr. Trujillo and Dr. Sylvester order. Dr. Sylvester also encouraged patient to take ibuprofen prophylactically
== END 2022-10-14 01:56 | disposition home or self-care (01) ==
LOC: HO.ED 10-14 00:40 → HO.SSS 10-14 00:47 → HO.ED 01-05 08:41
PROVIDERS: Nurse Practitioner Family; Emergency Provider Emergency Medicine Emergency Medical Services; Visit Provider Obstetrics & Gynecology
PROC: 10T24ZZ Resection of Products of Conception, Ectopic, Percutaneous Endoscopic Approach (ICD-10-PCS; CPT 59150; principal; 2022-10-13 22:30)
DX: O00.101 Right tubal pregnancy without intrauterine pregnancy (principal); O99.331 Smoking (tobacco) complicating pregnancy, first trimester; Z3A.01 Less than 8 weeks gestation of pregnancy; Z67.20 Type B blood, Rh positive; N93.8 Other specified abnormal uterine and vaginal bleeding; K66.1 Hemoperitoneum; F17.210 Nicotine dependence, cigarettes, uncomplicated; Z20.822 Contact with and (suspected) exposure to COVID-19; Z86.001 Personal history of in-situ neoplasm of cervix uteri; Z87.59 Personal history of other complications of pregnancy, childbirth and the puerperium
CPT/HCPCS: 59151; 36415; 76801; 76817; 80053; 81001; 81025; 83690; 84702; 85025; 86850; 86900; 86901; 87086; 87088; 87186; 87635; 88305; 99285; J0131; J1100; J2405; J2795; J3010

== ENCOUNTER 2022-10-22 11:44 | Outpatient (REF) | payer MEDICAID, SELFPAY ==
[2022-10-22 12:10] LABS: Hematocrit 37.6 % (37.0-47.0); Hemoglobin 12.7 g/dl (12.0-16.0); Mean Corpuscular HGB Conc 33.8 g/dl (31.0-35.0); Mean Corpuscular Hemoglobin 31.5 pg (27.0-33.0); Mean Corpuscular Volume 93.3 fL (80.0-98.0); Mean Platelet Volume 9.6 fL (9.4-12.3); Platelet Count 223 X10*3/uL (160-400); Red Blood Count 4.03 X10*6/uL (4.20-5.50); Red Cell Distribution Width 12.8 % (11.0-16.0); White Blood Count 7.6 X10*3/uL (4.8-10.8)
[2022-10-22 12:42] LABS: HCG Quantitative 216 mIU/mL
[2022-10-22 12:56] LABS: Thyroid Stimulating Hormone 0.26 uIU/mL (0.32-4.0)
[2022-10-23 08:53] LABS: HBc Num1 0.07 S/CO (0.00-0.79); HIV AB/AG Nonreactive (Nonreactive); HIV Num 1 0.06 S/CO (0.00-0.99); Hepatitis B Core Antibody Nonreactive (Nonreactive); ~HepC Num1 0.09 S/CO (0.00-0.79); ~Hepatitis C Antibody Nonreactive (Nonreactive)
[2022-10-23 08:58] LABS: Syphilis Screen Nonreactive (Nonreactive)
== END 2022-10-22 11:45 | disposition home or self-care (01) ==
LOC: HO.LAB 11:44
PROVIDERS: Advanced Practice Midwife; Visit Provider Obstetrics & Gynecology
DX: O00.201 Right ovarian pregnancy without intrauterine pregnancy (principal); Z11.4 Encounter for screening for human immunodeficiency virus [HIV]
CPT/HCPCS: 36415; 84443; 84702; 85027; 86704; 86780; 86803; 87389; 99212

== ENCOUNTER → 2023-01-29 10:48 | Outpatient (BNVA) | payer MEDICAID, SELFPAY | PROVIDERS: Visit Provider Obstetrics & Gynecology ==

== ENCOUNTER 2023-01-29 11:33 | Outpatient (REF) | payer MEDICAID, SELFPAY ==
--- NOTE | ~2023-01-29 | US_ITS ---
EXAMINATION: US OBSTETRICAL ULTRASOUND CLINICAL INFORMATION: Encounter for supervision abnormal COMPARISON: None available. LMP: 12/11/2022. Gestational age by maternal dates is 7 weeks 0 days. Estimated date of delivery by maternal dates is 09/17/2023. TECHNIQUE: Transabdominal first trimester OB ultrasound FINDINGS: There is a single intrauterine gestational sac with visible yolk sac, embryo/fetus, and cardiac activity. There is no significant subchorionic hemorrhage or hematoma. HR: 158 beats per minute. CRL (crown rump length): 1.24 cm (7 weeks 4 days +/- 4 days). JESSICA (estimated date of delivery): 09/13/2023 +/- 4 days. MATERNAL ADNEXA: The right maternal ovary measures 3 x 2.2 x 2.4 cm. The left maternal ovary measures 3.1 x 2.6 x 1.4 cm. There is no significant maternal adnexal mass. No maternal pelvic ascites. US/US OB pelvic and transvaginal IMPRESSION: 1. Single intrauterine gestation with ultrasound gestational age of 7 weeks 4 days +/- 4 days. 2. Estimated date of delivery is 09/13/2023 +/- 4 days. 3. No maternal adnexal mass or pelvic ascites.
[2023-01-29 13:15] LABS: HCG Quantitative > 225000 mIU/mL
== END 2023-01-29 11:34 | disposition home or self-care (01) ==
LOC: HO.US 11:33
PROVIDERS: Visit Provider Obstetrics & Gynecology
DX: Z34.91 Encounter for supervision of normal pregnancy, unspecified, first trimester (principal); Z3A.01 Less than 8 weeks gestation of pregnancy
CPT/HCPCS: 36415; 76801; 76817; 84702; 99212

== ENCOUNTER → 2023-02-15 09:52 | Outpatient (BNVA) | payer MEDICAID, SELFPAY | PROVIDERS: Visit Provider Obstetrics & Gynecology ==

== ENCOUNTER 2023-02-16 08:37 | Outpatient (REF) | payer MEDICAID, SELFPAY ==
[2023-02-16 16:11] LABS: CT PCR NOT DETECTED (Not Detect.); NG PCR NOT DETECTED (Not Detect.)
== END 2023-02-16 08:38 | disposition home or self-care (01) ==
LOC: HO.LNP 08:37
PROVIDERS: Visit Provider Advanced Practice Midwife
DX: O21.9 Vomiting of pregnancy, unspecified (principal); O99.341 Other mental disorders complicating pregnancy, first trimester; F41.9 Anxiety disorder, unspecified; F32.A Depression, unspecified; Z3A.09 9 weeks gestation of pregnancy
CPT/HCPCS: 0353U; 81003; 99212

== ENCOUNTER 2023-03-24 13:29 | Outpatient (REF) | payer MEDICAID, SELFPAY | END 2023-03-24 13:30 | disposition home or self-care (01) | LOC: HO.LNP 13:29 | PROVIDERS: Visit Provider Advanced Practice Midwife | DX: O26.892 Other specified pregnancy related conditions, second trimester (principal); N89.8 Other specified noninflammatory disorders of vagina; R10.2 Pelvic and perineal pain; R10.9 Unspecified abdominal pain; Z3A.14 14 weeks gestation of pregnancy | CPT/HCPCS: 87480; 87510; 87660; 99212 ==

== ENCOUNTER 2023-03-24 13:29 | Outpatient (AMB) | payer MEDICAID, SELFPAY ==
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
[2023-03-24 13:49] VITALS: BP 92/50; BMI 22.0
== END 2023-03-24 14:18 | disposition home or self-care (01) ==
LOC: HO.HWS 13:29
PROVIDERS: Visit Provider Advanced Practice Midwife
DX: Z34.82 Encounter for supervision of other normal pregnancy, second trimester (principal)
CPT/HCPCS: 25942

== ENCOUNTER 2023-03-24 14:23 | Outpatient (REF) | payer MEDICAID, SELFPAY ==
[2023-03-24 15:46] LABS: Hematocrit 33.5 % (37.0-47.0); Hemoglobin 11.4 g/dl (12.0-16.0); Mean Platelet Volume 9.7 fL (9.4-12.3); Platelet Count 208 X10*3/uL (160-400); Red Blood Count 3.68 X10*6/uL (4.20-5.50); White Blood Count 6.7 X10*3/uL (4.8-10.8)
[2023-03-24 16:57] LABS: Thyroid Stimulating Hormone 0.35 uIU/mL (0.32-4.0)
[2023-03-24 20:34] LABS: Amphetamine Screen Urine Not Detected (Not Detect); Barbiturates, Urine Not Detected (Not Detect); Benzodiazepines Screen Urine Not Detected (Not Detect); Cannabinoid Screen Urine Not Detected (Not Detect); Cocaine Screen Urine Not Detected (Not Detect); Fentanyl, urine Not Detected (Not Detect); Opiate Screen Urine Not Detected (Not Detect); Phencyclidine Screen Urine Not Detected (Not Detect)
[2023-03-25 05:13] LABS: HBsAGNum1 0.37 S/CO (0.00-0.99); HIV AB/AG Nonreactive (Nonreactive); HIV Num 1 0.05 S/CO (0.00-0.99); Hepatitis B Surface Antigen Negative (Negative); ~HepC Num1 0.07 S/CO (0.00-0.79); ~Hepatitis C Antibody Nonreactive (Nonreactive)
[2023-03-26 08:24] LABS: Syphilis Screen Nonreactive (Nonreactive)
[2023-03-26 17:53] LABS: Rubella IgG Antibody 6.71 Index
[2023-04-05 13:19] LABS: CF Ethnicity NG; Cystic Fibrosis NEGATIVE (NEGATIVE)
== END 2023-03-24 14:24 | disposition home or self-care (01) ==
LOC: HO.LAB 14:23
PROVIDERS: Absent Provider Advanced Practice Midwife; Visit Provider Obstetrics & Gynecology
DX: O09.12 Supervision of pregnancy with history of ectopic pregnancy, second trimester (principal); O21.9 Vomiting of pregnancy, unspecified
CPT/HCPCS: 80307; 81220; 84443; 85027; 86762; 86780; 86787; 86803; 86850; 86900; 87086; 87340; 87389

== ENCOUNTER 2023-05-14 11:28 | Outpatient (AMB) | payer MEDICAID, SELFPAY ==
[2023-05-14 11:32] VITALS: BP 106/56; BMI 24.3
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
== END 2023-05-14 12:39 | disposition home or self-care (01) ==
PROVIDERS: Visit Provider Advanced Practice Midwife
DX: Z34.82 Encounter for supervision of other normal pregnancy, second trimester (principal); F41.9 Anxiety disorder, unspecified; F32.A Depression, unspecified; O44.20 Partial placenta previa NOS or without hemorrhage, unspecified trimester
CPT/HCPCS: 25942

== ENCOUNTER → 2023-05-14 11:28 | Outpatient (BNVA) | payer MEDICAID, SELFPAY | PROVIDERS: Visit Provider Advanced Practice Midwife | DX: O99.342 Other mental disorders complicating pregnancy, second trimester (principal); F41.9 Anxiety disorder, unspecified; F32.A Depression, unspecified; O44.22 Partial placenta previa NOS or without hemorrhage, second trimester; Z3A.22 22 weeks gestation of pregnancy | CPT/HCPCS: 99212 ==